=== PATIENT | female | born 1970 | race Caucasian/White ===

== ENCOUNTER → 2016-09-05 | Outpatient (CLI) | payer OTHER ==
[~2016-09-05] MED LIST: ADDERALL 20 MG20 MG PO; IBUPROFEN600 MG PO; KLONOPIN TAB 00.5 MG PO; LAMICTAL200 MG PO; NEURONTIN 400400 MG PO; PERCOCET 10-321 EACH PO; PROZAC20 MG PO; SUBOXONE 8 MG-1 EACH PO
== END ==
LOC: EMI 18:00
DX: G95.9 Disease of spinal cord, unspecified (principal)
CPT/HCPCS: 72141

== ENCOUNTER → 2016-09-10 | Outpatient (CLI) | payer OTHER ==
[2016-09-10 11:10] LABS: HEMOGLOBIN 12.1 gm/dl (12.3-15.3); RED BLOOD COUNT 4.15 M/UL (4.00-5.10); WHITE BLOOD COUNT 5.3 K/UL (4.5-11.0)
[2016-09-10 11:30] LABS: BUN/CREATININE RATIO 47 (0-10)
== END ==
LOC: OPSV2 08:00
PROVIDERS: Orthopaedic Surgery
DX: Z01.810 Encounter for preprocedural cardiovascular examination (principal); Z01.812 Encounter for preprocedural laboratory examination; M19.012 Primary osteoarthritis, left shoulder; Z88.5 Allergy status to narcotic agent; Z88.8 Allergy status to other drugs, medicaments and biological substances
CPT/HCPCS: 36415; 80048; 81001; 85025; 87081; 93005

== ENCOUNTER 2016-09-20 08:15 | Inpatient (IN) | payer OTHER ==
[~2016-09-20] VITALS: Ht 165.1 cm; Wt 65.8 kg
[~2016-09-20 08:15] MED LIST changes: -KLONOPIN TAB 00.5 MG PO; -PERCOCET 10-321 EACH PO
[2016-09-20] MEDS ORDERED: KLONOPIN TAB 00.5 MG PO (10:03)
[2016-09-20 10:39] LABS: BUN/CREATININE RATIO 40 (0-10)
[2016-09-21 06:36] LABS: HEMOGLOBIN 9.4 gm/dl (12.3-15.3); RED BLOOD COUNT 3.26 M/UL (4.00-5.10); WHITE BLOOD COUNT 7.9 K/UL (4.5-11.0)
[2016-09-21 06:47] LABS: BUN/CREATININE RATIO 38 (0-10)
[2016-09-21] MEDS ORDERED: PERCOCET 10-321 EACH PO (12:40)
== END 2016-09-21 17:44 | disposition home health service (06) | DRG 483 ==
LOC: OR 08:15 → M/S 08:15 → EDSTATUS 08:15 → ZOBSOF 08:35 → M/S 10:30
PROVIDERS: ADMIT Orthopaedic Surgery
PROC: 0RRK00Z Replacement of Left Shoulder Joint with Reverse Ball and Socket Synthetic Substitute, Open Approach (ICD-10-PCS; principal; 2016-09-20 10:30)
DX: M21.822 Other specified acquired deformities of left upper arm (principal); D62 Acute posthemorrhagic anemia; I95.81 Postprocedural hypotension; G40.909 Epilepsy, unspecified, not intractable, without status epilepticus; M25.512 Pain in left shoulder; Z28.21 Immunization not carried out because of patient refusal; Z88.8 Allergy status to other drugs, medicaments and biological substances; Z88.5 Allergy status to narcotic agent; Z79.899 Other long term (current) drug therapy
CPT/HCPCS: 36415; 73020; 80048; 84703; 85025; 86850; 86900; 86901; C1776; J0690; J1885; J2250; J2370; J2710; J2795; J3010; J3370; J7120

== ENCOUNTER → 2016-10-27 | Outpatient (CLI) | payer OTHER ==
[~2016-10-27] MED LIST changes: +KLONOPIN TAB 00.5 MG PO; +PERCOCET 10-321 EACH PO
== END ==
LOC: RAD 11:30
DX: M25.512 Pain in left shoulder (principal); Z96.612 Presence of left artificial shoulder joint
CPT/HCPCS: 73030

== ENCOUNTER → 2020-10-11 | Outpatient (CLI) | payer MEDICARE, OTHER | LOC: LAB 15:36 | DX: Z51.81 Encounter for therapeutic drug level monitoring (principal); Z79.899 Other long term (current) drug therapy | CPT/HCPCS: 80076 ==